=== PATIENT | male | born 1960 | race Caucasian/White ===

== ENCOUNTER 2017-11-03 10:38 | Emergency (ER) | payer BC, OTHER ==
[2017-11-03] MEDS ORDERED: Nitroglycerin 2% Ointment 1 INCH/1 GM Packet ONE (10:53)
[2017-11-03 11:08] LABS: #Basophils 0.1 thou/uL (0.0-0.2); #Eosinphils 0.1 thou/uL (0.0-0.7); #Lymphocytes 1.2 thou/uL (1.20-3.40); #Monocytes 1.2 thou/uL (0.11-0.59); #Neutrophils 8.4 thou/uL (1.40-6.50); %Basophils 0.8 % (0.0-1.0); %Eosinophils 1.2 % (0.0-10.0); %Lymphocytes 11.1 % (21.0-51.0); %Monocytes 10.8 % (0.0-10.0); Hemoglobin 15.5 g/dL (14.0-18.0); Mean Corpuscular HGB CONC 33.3 g/dL (32.0-36.0); Mean Corpuscular Hemoglobin 31.3 pg (27.0-31.0); Mean Platelet Volume 6.8 fL (7.4-10.4); Platelet Count 230 thou/uL (130-400); Red Blood Cell (RBC) Count 4.96 mill/uL (4.70-6.10); White Blood Cell (WBC) Count 11.1 thou/uL (4.8-10.8)
[2017-11-03 11:19] LABS: ALT (SGPT) 16 U/L (8-55); AST (SGOT) 22 U/L (5-34); Albumin 4.5 g/dL (3.5-5.0); Alkaline Phosphatase 56 U/L (40-150); Anion Gap 13 mmol/L (10-20); BUN (Urea Nitrogen) 14 mg/dL (8.4-25.7); Bilirubin, Total 0.6 mg/dL (0.2-1.2); CK (CPK) 100 U/L (30-200); Calc. Creatinine Clearance 0 mL/min (70-130); Calcium 9.4 mg/dL (7.8-10.44); Carbon Dioxide 26 mmol/L (22-29); Chloride 105 mmol/L (98-107); Estimated GFR-MDRD 66; Globulin 2.6 g/dL (2.4-3.5); Glucose 121 mg/dL (70-105); Lipase 13 U/L (8-78); Potassium 4.4 mmol/L (3.5-5.1); Protein, Total 7.1 g/dL (6.0-8.3); Sodium 140 mmol/L (136-145)
[2017-11-03 11:21] LABS: CKMB 1.9 ng/mL (0-6.6); Troponin I Less than 0.010 ng/mL (< 0.028)
--- NOTE | 2017-11-03 11:38 | RAD ---
PORTABLE CHEST ONE VIEW: 11/03/2017 11:12 a.m. HISTORY: Chest pain. FINDINGS: Heart size is normal. No confluent areas of consolidation, pneumothoraces, or pleural effusions seen . IMPRESSION: No radiographic evidence of acute cardiopulmonary process. POS: [facility]
[2017-11-03 14:05] LABS: Troponin I Less than 0.010 ng/mL (< 0.028)
[2017-11-03] MEDS ORDERED: Acetaminophen 500 MG TAB ONE (15:14)
[2017-11-03] MEDS ORDERED: Ondansetron HCl/PF 4 MG/2 ML Vial ONE (15:14)
== END 2017-11-03 14:40 | disposition left against medical advice (07) ==
LOC: SCSER 10:38
DX: R07.9 Chest pain, unspecified (principal); R11.2 Nausea with vomiting, unspecified
CPT/HCPCS: 71045; 80053; 82550; 82553; 83690; 84484; 85025; 85379; 93005; 96374; 96375; J2270; J2405

== ENCOUNTER 2018-02-07 10:04 | Emergency (ER) | payer BC, OTHER ==
[2018-02-07] MEDS ORDERED: Ketorolac Tromethamine 30 MG/ML VIAL ONE (10:21)
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
[2018-02-07] MEDS ORDERED: HYDROcodone/Acetaminophen 5/325 mg Tablet ONE (11:44)
== END 2018-02-07 11:53 | disposition home or self-care (01) ==
LOC: SCSER 10:04
DX: S12.01XA Stable burst fracture of first cervical vertebra, initial encounter for closed fracture (principal); V29.9XXA Motorcycle rider (driver) (passenger) injured in unspecified traffic accident, initial encounter; Y93.55 Activity, bike riding; Y92.410 Unspecified street and highway as the place of occurrence of the external cause
CPT/HCPCS: 70450; 72125; 96372; J1885

== ENCOUNTER 2018-02-12 13:27 | Outpatient (CLI) | payer BC ==
--- NOTE | 2018-02-12 15:52 | RAD ---
CERVICAL SPINE 3 VIEWS: HISTORY: Followup C1 fracture. COMPARISON: 02/07/2018. FINDINGS: Again noted are displaced vertical fractures through the anterior ring of C1 with lateral displacemen t of the lateral masses of C1 in relationship to C2. Otherwise, there are some generalized cervical spondylosis changes. IMPRESSION: Stable displaced C1 fracture and associated malalignment. POS: [facility]
== END 2018-02-12 13:28 | disposition home or self-care (01) ==
LOC: TBSIIMAG 13:27
PROVIDERS: ATTEND Surgery
DX: S12.000D Unspecified displaced fracture of first cervical vertebra, subsequent encounter for fracture with routine healing (principal)
CPT/HCPCS: 72040

== ENCOUNTER 2018-03-26 13:16 | Outpatient (CLI) | payer BC ==
--- NOTE | 2018-03-26 15:17 | RAD ---
3 VIEWS CERVICAL SPINE: Date: 03/26/18 COMPARISON: 02/12/18. HISTORY: C1 fracture. FINDINGS: Three view examination of the cervical spine is obtained with the patient in a cervical collar. No focal area of prevertebral soft tissue swelling is noted. Fracture deformities are again seen involving the C1 ring bilaterally, as evidenced by lateral displa cement of bilateral C1 ring with respect to C2 vertebral body. On the right, the lateral displacement measures 5.0 mm, not significantly changed. On the left, the lateral displacement also measures 5.0 mm, not significantly changed. No new fracture is evident. IMPRESSION: Stable C1 fracture deformity with lateral displacement of lateral masses of C1 with respect to body o f C2 as detailed above. POS: [facility]
== END 2018-03-26 13:17 | disposition home or self-care (01) ==
LOC: TBSIIMAG 13:16
PROVIDERS: ATTEND Surgery
DX: S12.000D Unspecified displaced fracture of first cervical vertebra, subsequent encounter for fracture with routine healing (principal)
CPT/HCPCS: 72040

== ENCOUNTER 2018-05-09 08:41 | Outpatient (CLI) | payer BC ==
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
== END 2018-05-09 08:42 | disposition home or self-care (01) ==
LOC: TBSIIMAG 08:41
PROVIDERS: ATTEND Surgery
DX: S12.9XXA Fracture of neck, unspecified, initial encounter (principal)
CPT/HCPCS: 72040